=== PATIENT | male | born 1965 | race African-American/Black ===

== ENCOUNTER 2018-05-15 16:02 | Emergency (ER) | payer MEDICAID ==
[~2018-05-15] VITALS: Ht 175.3 cm; Wt 79.0 kg
[2018-05-15] MEDS ORDERED: TETANUS, DIPHTHERIA, PERTUSSIS VAC/PF 0.5ML (>7YR OLD) IM ONE (17:00)
[2018-05-15] MEDS ORDERED: LIDOCAINE 1%/EPI 1:100,000 10 ML VIAL IJ ONE (21:00)
[2018-05-15] MEDS ORDERED: BACITRACIN ZINC OINT UDPKT TOP ONE (21:00)
[2018-05-15 22:45] VITALS: BP 172/85
== END 2018-05-15 22:50 | disposition home or self-care (01) ==
LOC: ER 16:02
DX: S01.511A Laceration without foreign body of lip, initial encounter (principal); W50.0XXA Accidental hit or strike by another person, initial encounter; Y93.89 Activity, other specified; Y92.89 Other specified places as the place of occurrence of the external cause; Y99.8 Other external cause status
CPT/HCPCS: 40650; 99284; J3490; Z7610

== ENCOUNTER 2018-05-24 02:14 | Emergency (ER) | payer MEDICAID, OTHER ==
[~2018-05-24] VITALS: Ht 172.7 cm; Wt 78.0 kg
[2018-05-24 02:35] VITALS: BP 145/87
== END 2018-05-24 03:35 | disposition home or self-care (01) ==
LOC: ER 02:14
DX: Z48.02 Encounter for removal of sutures (principal)
CPT/HCPCS: 99281; Z7610